=== PATIENT | female | born 2000 | race Caucasian/White ===

== ENCOUNTER 2021-05-02 19:05 | Emergency (ER) | payer MEDICAID, OTHER ==
--- NOTE | 2021-05-02 19:42 | EDM.PDOC ---
ED HPI GENERAL MEDICAL PROBLEM - General Chief Complaint: Head Injury Stated Complaint: HEAD INJURY Time Seen by Provider: 05/02/21 19:20 Source of Information: Reports: Patient History Limitations: Reports: No Limitations - History of Present Illness INITIAL COMMENTS - FREE TEXT/NARRATIVE: 20 YO WF PRESENTS TO ER COMPLAINING OF HEADACHE WITH NAUSEA/VOMITING AFTER A TRIP AND FALL 3 DAYS AGO. PT REPORTS SHE WAS PLAY FIGHTING HER FRIENDS AND GOT TRIPPED AND FELL FORWARD HITTING HER HEAD ON THE GROUND. PT DENIES ANY LOSS OF CONSCIOUSNESS AND FULL RECOLLECTION OF EVENTS BEFORE AND AFTER INJURY. PT DENIES ANY NECK PAIN, OR FACIAL INJURIES. PT REPORTS SHE HAS HAD DECREASED APPETITE AND OCCASIONAL EPISODES OF VOMITING OVER THE LAST 3 DAYS PROMPTING ER EVALUATION. PT UNSURE OF HER LMP. GCS-15 AND ALERT AND ORIENTED X 4. Onset Date: 04/30/21 Duration: Day(s): (3) Location: Reports: Head Quality: Reports: Ache Severity: Mild Improves with: Reports: None Worsens with: Reports: None Associated Symptoms: Reports: Headaches, Nausea/Vomiting. Denies: Confusion, Chest Pain, Cough, cough w sputum, Diaphoresis, Fever/Chills, Loss of Appetite, Malaise, Rash, Seizure, Shortness of Breath, Syncope, Weakness - Related Data Allergies Allergy/AdvReac Type Severity Reaction Status Date / Time No Known Drug Allergies Allergy Other Verified 05/02/21 19:48 Home Meds: Home Meds Escitalopram [Lexapro] 20 mg PO DAILY 05/02/21 [History] Ondansetron [Zofran ODT] 4 mg PO Q8HR PRN #10 tab.dis 05/02/21 [Rx] ED ROS GENERAL - Review of Systems Review Of Systems: See Below Constitutional: Reports: Decreased Appetite HEENT: Reports: No Symptoms Respiratory: Reports: No Symptoms Cardiovascular: Reports: No Symptoms Endocrine: Reports: No Symptoms GI/Abdominal: Reports: Nausea, Vomiting : Reports: No Symptoms Musculoskeletal: Reports: No Symptoms Skin: Reports: No Symptoms Neurological: Reports: Dizziness, Headache Psychiatric: Reports: No Symptoms Hematologic/Lymphatic: Reports: No Symptoms Immunologic: Reports: No Symptoms ED EXAM, HEAD INJURY - Physical Exam Exam: See Below Exam Limited By: No Limitations General Appearance: Alert, WD/WN, No Apparent Distress Head: Normocephalic, Facial Abrasions Nexus Criteria: No: Posterior, Midline Cervical Tenderness, Evidence of Intoxication, Altered Level of Consciousness, Focal Neurological Deficit, Painful Distraction Injuries Eyes: Bilateral Eye: EOMI, PERRL Throat/Mouth: Normal Inspection, Normal Lips, Normal Teeth, Normal Gums, Normal Oropharynx, Normal Voice, No Airway Compromise Neck: Non-Tender, Full Range of Motion, Normal Alignment, Normal Inspection Respiratory: No Respiratory Distress, Lungs Clear, Normal Breath Sounds, No Accessory Muscle Use, Chest Non-Tender Cardiovascular: Normal Peripheral Pulses, Regular Rate, Rhythm, No Edema, No Gallop, No JVD, No Murmur, No Rub GI/Abdominal Exam: Normal Bowel Sounds, Soft, Non-Tender, No Organomegaly, No Distention, No Abnormal Bruit, No Mass Back Exam: Full Range of Motion, Normal Inspection, NT Extremities: Normal Inspection, Normal Range of Motion, Non-Tender, No Pedal Edema, Normal 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 As Tested, No Motor/Sensory Deficits, Alert, Normal Mood/Affect, Oriented x 3 Skin: Normal Color, Warm/Dry - [place] Coma Score Best Eye Response ([place]): (4) Open Spontaneously Best Verbal Response ([place]): (5) Oriented Best Motor Response ([place]): (6) Obeys Commands Course - Vital Signs Last Recorded V/S: Last Vital Signs Temp 99.7 F 05/02/21 19:15 Pulse 89 05/02/21 19:15 Resp 16 05/02/21 19:15 BP 141/72 H 05/02/21 19:15 Pulse Ox 98 05/02/21 19:15 - Orders/Labs/Meds Labs: Laboratory Tests 05/02/21 Range/Units 20:00 Urine HCG, Qual Negative (NEGATIVE) - Radiology Interpretation Free Text/Narrative:: CT HEAD- NAD Departure - Departure Time of Disposition: 20:27 Disposition: Home, Self-Care 01 Condition: Good Clinical Impression: Concussion with no loss of consciousness - Discharge Information Prescriptions: Ondansetron [Zofran ODT] 4 mg PO Q8HR PRN #10 tab.dis PRN Reason: Vomiting Instructions: Head Injury, Adult, Concussion, Adult Referrals: Ayde Sykes MD [Primary Care Provider] - Forms: ED Department Discharge Additional Instructions: 1. DISCHARGE HOME 2. HEAD INJURY PRECAUTIONS/CONCUSSION PROTOCOLS GIVEN 3. RETURN TO ER FOR WORSENING SYMPTOMS 4. FOLLOW UP WITH PCP FOR FURTHER EVALUATION AND TREATMENT Sepsis Event Note (ED) - Focused Exam Vital Signs: Vital Signs Temp Pulse Resp BP Pulse Ox 05/02/21 19:15 99.7 F 89 16 141/72 H 98 - Assessment/Plan Assessment:: 1. MINOR HEAD INJURY 2. CONCUSSION Plan: 1. DISCHARGE HOME 2. HEAD INJURY PRECAUTIONS/CONCUSSION PROTOCOLS GIVEN 3. RETURN TO ER FOR WORSENING SYMPTOMS 4. FOLLOW UP WITH PCP FOR FURTHER EVALUATION AND TREATMENT
--- NOTE | 2021-05-02 20:30 | CT ---
[id number] CT/CT Head WO IV EXAM: NONCONTRAST HEAD CT INDICATION: HEAD INJURY COMPARISON: None. DISCUSSION: The ventricles and sulci are normal in size and configuration. The sanchez and white matter are normal in attenuation. No mass effect or midline shift. No acute hemorrhage or extra-axial fluid collection. No acute territorial infarct is identified. A limited look at the orbits and paranasal sinuses is unremarkable. IMPRESSION: 1. Negative exam. Amadou Ndiaye MD 05/02/212028 Thank you for allowing us to participate in the care of your patient.
[2021-05-02] MEDS: Ondansetron 4 MG Tab.DIS PO ONE (20:40)
[2021-05-02] MEDS: Ketorolac 60 MG/2 ML SDV IM ONE (20:43)
== END 2021-05-02 20:55 | disposition home or self-care (01) ==
LOC: KA.ED 19:05
DX: S06.0X0A Concussion without loss of consciousness, initial encounter (principal); W01.198A Fall on same level from slipping, tripping and stumbling with subsequent striking against other object, initial encounter
CPT/HCPCS: 70450; 81025; 96372; 99283; 99284-25; A9270-GY; J1885